=== PATIENT | female | born 1945 | race Caucasian/White ===

== ENCOUNTER → 2019-09-10 | Outpatient (CLI) | payer OTHER | LOC: HYPER 08:09 | DX: L89.213 Pressure ulcer of right hip, stage 3 (principal); L89.152 Pressure ulcer of sacral region, stage 2; L02.415 Cutaneous abscess of right lower limb; L08.9 Local infection of the skin and subcutaneous tissue, unspecified; I10 Essential (primary) hypertension; G47.09 Other insomnia; G82.20 Paraplegia, unspecified; M62.3 Immobility syndrome (paraplegic) ==

== ENCOUNTER → 2019-09-17 | Outpatient (CLI) | payer OTHER | LOC: HYPER 08:38 | DX: L89.213 Pressure ulcer of right hip, stage 3 (principal); L89.152 Pressure ulcer of sacral region, stage 2; L02.415 Cutaneous abscess of right lower limb; L08.9 Local infection of the skin and subcutaneous tissue, unspecified; G82.20 Paraplegia, unspecified; M62.3 Immobility syndrome (paraplegic); I10 Essential (primary) hypertension; G47.09 Other insomnia ==

== ENCOUNTER → 2019-10-02 | Outpatient (CLI) | payer OTHER | LOC: HYPER 09:44 | DX: L89.213 Pressure ulcer of right hip, stage 3 (principal); L89.152 Pressure ulcer of sacral region, stage 2; L02.415 Cutaneous abscess of right lower limb; L08.9 Local infection of the skin and subcutaneous tissue, unspecified; G82.20 Paraplegia, unspecified; M62.3 Immobility syndrome (paraplegic); I10 Essential (primary) hypertension; G47.09 Other insomnia ==

== ENCOUNTER → 2019-10-14 | Outpatient (CLI) | payer OTHER | LOC: HYPER 09:42 | DX: L89.213 Pressure ulcer of right hip, stage 3 (principal); L89.152 Pressure ulcer of sacral region, stage 2; L02.415 Cutaneous abscess of right lower limb; L08.9 Local infection of the skin and subcutaneous tissue, unspecified; I10 Essential (primary) hypertension; G82.20 Paraplegia, unspecified; M62.3 Immobility syndrome (paraplegic); G47.09 Other insomnia ==

== ENCOUNTER → 2019-10-29 | Outpatient (CLI) | payer OTHER | LOC: HYPER 08:00 | DX: L89.152 Pressure ulcer of sacral region, stage 2 (principal); L89.213 Pressure ulcer of right hip, stage 3; L02.415 Cutaneous abscess of right lower limb; L08.9 Local infection of the skin and subcutaneous tissue, unspecified; G47.09 Other insomnia; G82.20 Paraplegia, unspecified; G47.00 Insomnia, unspecified; I10 Essential (primary) hypertension; M62.3 Immobility syndrome (paraplegic) ==

== ENCOUNTER → 2019-11-19 | Outpatient (CLI) | payer OTHER | LOC: HYPER 11:49 | DX: L89.213 Pressure ulcer of right hip, stage 3 (principal); L89.152 Pressure ulcer of sacral region, stage 2; L08.9 Local infection of the skin and subcutaneous tissue, unspecified; G47.09 Other insomnia; G82.20 Paraplegia, unspecified; G47.00 Insomnia, unspecified; M62.3 Immobility syndrome (paraplegic); I10 Essential (primary) hypertension ==

== ENCOUNTER → 2019-12-17 | Outpatient (CLI) | payer OTHER | LOC: HYPER 08:56 | DX: L89.152 Pressure ulcer of sacral region, stage 2 (principal); L89.213 Pressure ulcer of right hip, stage 3; L08.9 Local infection of the skin and subcutaneous tissue, unspecified; I10 Essential (primary) hypertension; G47.09 Other insomnia; G82.20 Paraplegia, unspecified; G47.00 Insomnia, unspecified; M62.3 Immobility syndrome (paraplegic) ==

== ENCOUNTER → 2020-01-21 | Outpatient (CLI) | payer OTHER | LOC: HYPER 08:59 | PROVIDERS: ATTEND Emergency Medicine | DX: L89.213 Pressure ulcer of right hip, stage 3 (principal); L08.9 Local infection of the skin and subcutaneous tissue, unspecified; I10 Essential (primary) hypertension; G47.09 Other insomnia; G82.20 Paraplegia, unspecified; M62.3 Immobility syndrome (paraplegic) ==

== ENCOUNTER → 2020-02-18 | Outpatient (CLI) | payer OTHER | LOC: HYPER 10:37 | PROVIDERS: ATTEND Emergency Medicine | DX: L89.213 Pressure ulcer of right hip, stage 3 (principal); L89.152 Pressure ulcer of sacral region, stage 2; L08.9 Local infection of the skin and subcutaneous tissue, unspecified; I10 Essential (primary) hypertension; G47.09 Other insomnia; G82.20 Paraplegia, unspecified; M62.3 Immobility syndrome (paraplegic) ==

== ENCOUNTER → 2020-03-17 | Outpatient (CLI) | payer OTHER | LOC: HYPER 08:49 | PROVIDERS: ATTEND Emergency Medicine | DX: L89.213 Pressure ulcer of right hip, stage 3 (principal); L08.9 Local infection of the skin and subcutaneous tissue, unspecified; G47.09 Other insomnia; G82.20 Paraplegia, unspecified; I10 Essential (primary) hypertension; M62.3 Immobility syndrome (paraplegic) ==

== ENCOUNTER → 2020-03-31 | Outpatient (CLI) | payer OTHER | LOC: HYPER 08:54 | PROVIDERS: ATTEND Emergency Medicine | DX: L89.213 Pressure ulcer of right hip, stage 3 (principal); L08.9 Local infection of the skin and subcutaneous tissue, unspecified; I10 Essential (primary) hypertension; G47.09 Other insomnia; G82.20 Paraplegia, unspecified; M62.3 Immobility syndrome (paraplegic) ==

== ENCOUNTER → 2020-04-21 | Outpatient (CLI) | payer OTHER | LOC: HYPER 08:26 | PROVIDERS: ATTEND Emergency Medicine | DX: L89.213 Pressure ulcer of right hip, stage 3 (principal); L08.9 Local infection of the skin and subcutaneous tissue, unspecified; I10 Essential (primary) hypertension; G47.09 Other insomnia; G82.20 Paraplegia, unspecified; M62.3 Immobility syndrome (paraplegic) ==

== ENCOUNTER → 2020-05-12 | Outpatient (CLI) | payer OTHER | LOC: HYPER 08:10 | PROVIDERS: ATTEND Emergency Medicine | DX: L89.213 Pressure ulcer of right hip, stage 3 (principal); L08.9 Local infection of the skin and subcutaneous tissue, unspecified; I10 Essential (primary) hypertension; G47.09 Other insomnia; G82.20 Paraplegia, unspecified; M62.3 Immobility syndrome (paraplegic) ==

== ENCOUNTER → 2020-06-02 | Outpatient (CLI) | payer OTHER | LOC: HYPER 08:27 | PROVIDERS: ATTEND Emergency Medicine | DX: L89.213 Pressure ulcer of right hip, stage 3 (principal); L08.9 Local infection of the skin and subcutaneous tissue, unspecified; E66.9 Obesity, unspecified; G47.09 Other insomnia; G82.20 Paraplegia, unspecified; I10 Essential (primary) hypertension; M62.3 Immobility syndrome (paraplegic); Z68.26 Body mass index [BMI] 26.0-26.9, adult ==

== ENCOUNTER → 2020-06-30 | Outpatient (CLI) | payer OTHER | LOC: HYPER 08:16 | PROVIDERS: ATTEND Emergency Medicine | DX: L89.213 Pressure ulcer of right hip, stage 3 (principal); L08.9 Local infection of the skin and subcutaneous tissue, unspecified; G82.20 Paraplegia, unspecified; M62.3 Immobility syndrome (paraplegic); I10 Essential (primary) hypertension; G47.09 Other insomnia ==

== ENCOUNTER → 2020-07-28 | Outpatient (CLI) | payer OTHER | LOC: HYPER 11:52 | PROVIDERS: ATTEND Emergency Medicine | DX: L89.213 Pressure ulcer of right hip, stage 3 (principal); L08.9 Local infection of the skin and subcutaneous tissue, unspecified; G82.20 Paraplegia, unspecified; M62.3 Immobility syndrome (paraplegic); I10 Essential (primary) hypertension; G47.09 Other insomnia; E66.9 Obesity, unspecified; Z68.26 Body mass index [BMI] 26.0-26.9, adult ==